=== PATIENT | male | born 1990 | race Caucasian/White ===

== ENCOUNTER 2016-03-15 13:36 | Emergency (ER) | payer BC ==
[2016-03-15 14:45] VITALS: BP 168/87; PULSE 87; RESP 18; TEMP 98.6
[2016-03-15] MEDS ORDERED: TOPICAL SKIN ADHESIVE 1 EACH AMP TOPICAL ONE (14:46)
--- NOTE | 2016-03-15 14:50 | ED ---
Skin/Abscess/FB HPI - General Chief complaint: Skin/Abscess/Foreign Body Stated complaint: Finger Laceration Time Seen by Provider: 03/15/16 14:37 Source: patient, RN notes reviewed Mode of arrival: ambulatory - History of Present Illness Initial comments: 25-year-old male presents emergency Department chief complaint of right middle finger laceration. Patient states he cut knife today. Patient states that as tenderness. Patient states he does have some burning at the site. Patient denies any changes in sensation. Patient states he noticed bleeding. Patient states the knife is still intact. Patient states there is no other injuries from the incident.Patient denies any recent fever, chills, shortness of breath, chest pain, back pain, abdominal pain, nausea vomiting, numbness or tingling, dysuria or hematuria, constipation or diarrhea, headaches or visual changes, or any other current symptoms. - Related Data Allergies Allergy/AdvReac Type Severity Reaction Status Date / Time Sulfa (Sulfonamide Allergy Rash/Hives Verified 03/15/16 14:45 Antibiotics) Review of Systems ROS Statement: Those systems with pertinent positive or pertinent negative responses have been documented in the HPI. ROS Other: All systems not noted in ROS Statement are negative. Past Medical History Past Medical History: No Reported History History of Any Multi-Drug Resistant Organisms: None Reported Past Surgical History: No Surgical Hx Reported Additional Past Surgical History / Comment(s): eye Past Psychological History: ADD/ADHD Smoking Status: Current every day smoker Past Alcohol Use History: None Reported Past Drug Use History: None Reported General Exam - General Exam Comments Initial Comments: General: The patient is awake and alert, in no distress, and does not appear acutely ill. Neck: The neck is supple, there is no tenderness. Cardiovascular: There is a regular rate and rhythm. No murmur, rub or gallop is appreciated. Respiratory: Lungs are clear to auscultation, respirations are non-labored, breath sounds are equal. No wheezes, stridor, rales, or rhonchi. Musculoskeletal: Sensation to have a 2+ pulses. Infection. Following her motion of right hand. Full range motion of all digits. Patient is appear to have a 1 cm laceration to the distal aspect of the right middle finger. Sensation intact with less than 2 capillary refill. Neurological: CN II-XII intact, There are no obvious motor or sensory deficits. Coordination appears grossly intact. Speech is normal. Skin: Skin is warm and dry and no rashes or lesions are noted. Psychiatric: Normal mood and affect. Course Vital Signs 03/15/16 14:41 Temperature 98.6 F Pulse Rate 87 Respiratory 18 Rate Blood Pressure 168/87 O2 Sat by Pulse 98 Oximetry Procedures - Procedures Initial comment: The area was cleaned and prepped. Patient underwent REPAIR OF THE WOUND. PATIENT TOLERATED WELL. Medical Decision Making - Medical Decision Making 25-year-old male presents emergency department with a chief complaint of finger laceration. Time patient underwent Dermabond repair. We discussed. Discussed return parameters. We discussed all the patient's questions. He stated he understood and all his questions have been answered. This time the patient will be discharged home. Disposition Clinical Impression: Laceration of right middle finger without foreign body without damage to nail Disposition: HOME SELF-CARE Condition: Stable Instructions: Skin Adhesive Care (ED) Additional Instructions: Please use medication as discussed. Please follow up with family doctor if symptoms have not improved over the next two days. Please return to the emergency room if your symptoms increase or worsen or for any other concerns. Referrals: Palomo Archer MD [Primary Care Provider] - 1-2 days Time of Disposition: 15:07
== END 2016-03-15 15:40 | disposition home or self-care (01) ==
LOC: EC 13:36
DX: S61.212A Laceration without foreign body of right middle finger without damage to nail, initial encounter (principal); Z88.2 Allergy status to sulfonamides
CPT/HCPCS: 12001; 99282

== ENCOUNTER 2023-12-14 23:32 | Emergency (ER) | payer BC, OTHER ==
[2023-12-14 23:36] VITALS: TEMP 98.7
--- NOTE | 2023-12-15 00:05 | ED ---
ENT HPI - General Chief complaint: ENT Stated complaint: R Ear Swelling Time Seen by Provider: 12/15/23 00:03 Source: patient, RN notes reviewed Mode of arrival: ambulatory Limitations: no limitations - History of Present Illness Initial comments: 33-year-old male presenting to the ER with a chief complaint of right ear pain and swelling. He states he woke up this morning and noticed his right ear was erythematous and edematous with mild drainage. He denies any injuries or traumas. Denies any decreased hearing. No mastoid pain. Patient does report he uses Q-tips on the regular basis. No fevers or chills. No other complaints. - Related Data Allergies Allergy/AdvReac Type Severity Reaction Status Date / Time Sulfa (Sulfonamide Allergy Rash/Hives Verified 12/14/23 23:36 Antibiotics) Review of Systems ROS Statement: Those systems with pertinent positive or pertinent negative responses have been documented in the HPI. ROS Other: All systems not noted in ROS Statement are negative. Past Medical History Past Medical History: No Reported History History of Any Multi-Drug Resistant Organisms: None Reported Past Surgical History: No Surgical Hx Reported Additional Past Surgical History / Comment(s): eye Past Psychological History: ADD/ADHD Smoking Status: Current every day smoker Past Alcohol Use History: None Reported Past Drug Use History: Marijuana General Exam Limitations: no limitations General appearance: alert, in no apparent distress Head exam: Present: atraumatic, normocephalic, normal inspection Eye exam: Present: normal appearance, PERRL, EOMI. Absent: scleral icterus, conjunctival injection, periorbital swelling ENT exam: Present: normal exam, normal oropharynx, mucous membranes moist, TM's normal bilaterally (Right external auditory canal is erythematous and edematous. There is honey colored crust to external auricle. No mastoid tenderness bilaterally.) Neck exam: Present: normal inspection. Absent: tenderness, meningismus, lymphadenopathy Respiratory exam: Present: normal lung sounds bilaterally. Absent: respiratory distress, wheezes, rales, rhonchi, stridor Cardiovascular Exam: Present: regular rate, normal rhythm, normal heart sounds. Absent: systolic murmur, diastolic murmur, rubs, gallop, clicks Course Vital Signs 12/14/23 23:33 Temperature 98.7 F Pulse Rate 131 H Respiratory 18 Rate Blood Pressure 128/62 O2 Sat by Pulse 97 Oximetry Medical Decision Making - Medical Decision Making Was pt. sent in by a medical professional or institution ([facility], [employer], urgent care, hospital, or [place] health care facility...) When possible be specific @ -No Did you speak to anyone other than the patient for history (EMS, parent, family, police, friend...)? What history was obtained from this source @ -No Did you review nursing and triage notes (agree or disagree)? Why? @ -I reviewed and agree with nursing and triage notes Were old charts reviewed (outside hosp., previous admission, EMS record, old EKG, old radiological studies, urgent care reports/EKG's, [place] health care facility records)? Report findings @ -No old charts were reviewed Differential Diagnosis (chest pain, altered mental status, abdominal pain women, abdominal pain men, vaginal bleeding, weakness, fever, dyspnea, syncope, headache, dizziness, GI bleed, back pain, seizure, CVA, palpatations, mental health, musculoskeletal)? @ -Otitis media, otitis externa, foreign body, mastoiditis This list is not meant to be all-inclusive EKG interpreted by me (3pts min.). @ -None done X-rays interpreted by me (1pt min.). @ -None done CT interpreted by me (1pt min.). @ -None done U/S interpreted by me (1pt. min.). @ -None done What testing was considered but not performed or refused? (CT, X-rays, U/S, labs)? Why? @ -None What meds were considered but not given or refused? Why? @ -None Did you discuss the management of the patient with other professionals (professionals i.e. [facility], [employer], lab, RT, psych nurse, social work specialist, plastics spreading machine operator, teacher, consumer loan officer, test case developer)? Give summary @ -No Was smoking cessation discussed for >3mins.? @ -No Was critical care preformed (if so, how long)? @ -No Were there social determinants of health that impacted care today? How? (Homelessness, low income, unemployed, alcoholism, drug addiction, transportation, low edu. Level, literacy, decrease access to med. care, fci, rehab)? @ -No Was there de-escalation of care discussed even if they declined (Discuss DNR or withdrawal of care, Hospice)? DNR status @ -No What co-morbidities impacted this encounter? (DM, HTN, Smoking, COPD, CAD, Cancer, CVA, ARF, Chemo, Hep., AIDS, mental health diagnosis, sleep apnea, morbid obesity)? @ -None Was patient admitted / discharged? Hospital course, mention meds given and route, prescriptions, significant lab abnormalities, going to OR and other pertinent info. @ -Discharge. 33-year-old male presented to ER with a chief complaint of right ear pain. History and physical exam completed. Vitals within normal limits. Patient in no signs of acute distress. Exam remarkable for erythema and honey colored crust to auricle. External auditory canal is erythematous and edematous consistent with otitis externa. Bilateral tympanic membranes are intact with no evidence of otitis media. No mastoid tenderness bilaterally. Patient will be started on ofloxacin eardrops. I advised 5 drops in affected ear twice daily for 7 days. I also advise close follow-up with PCP. Strict return parameters discussed. Patient discharged in stable condition. Patient verbally expressed understanding and agreement with care plan. Case discussed with ED attending, Dr. Rajput. Undiagnosed new problem with uncertain prognosis? @ -No Drug Therapy requiring intensive monitoring for toxicity (Heparin, Nitro, Insulin, Cardizem)? @ -No Were any procedures done? @ -No Diagnosis/symptom? @ -Otitis externa Acute, or Chronic, or Acute on Chronic? @ -Acute Uncomplicated (without systemic symptoms) or Complicated (systemic symptoms)? @ -Uncomplicated Side effects of treatment? @ -No Exacerbation, Progression, or Severe Exacerbation? @ -No Poses a threat to life or bodily function? How? (Chest pain, [place], [place], pneumonia, PE, COPD, DKA, ARF, appy, cholecystitis, CVA, Diverticulitis, Homicidal, Suicidal, threat to staff... and all critical care pts) @ -No Disposition Clinical Impression: Otitis externa Disposition: HOME SELF-CARE Condition: Stable Instructions (If sedation given, give patient instructions): Swimmer's Ear (ED) Additional Instructions: Use ofloxacin eardrops 5 drops in affected ear twice daily for 7 days. Return to the ER for any new or worsening symptoms. Is patient prescribed a controlled substance at d/c from ED?: No Referrals: None,Stated [Primary Care Provider] - 1-2 days Forms: Area PCPs Time of Disposition: 00:04
[2023-12-15] MEDS: OFLOXACIN 0.3% OPHTH DROPS 5 ML BOTTLE RIGHT EAR ONE (00:19)
[2023-12-15 00:33] VITALS: BP 125/85; PULSE 99; RESP 20
== END 2023-12-15 00:22 | disposition home or self-care (01) ==
LOC: EC 23:32
CPT/HCPCS: 99282